=== PATIENT | female | born 1945 | race Two or more races ===

== ENCOUNTER 2023-05-20 18:00 | Inpatient (IN) | payer OTHER ==
[~2023-05-20] VITALS: Ht 165.1 cm; Wt 54.5 kg
[2023-05-20] MEDS ORDERED: SODIUM CHLORIDE 0.9% 1,000 ML IV ONE (18:30)
[2023-05-20] MEDS ORDERED: dilTIAZem 25 MG/5 ML VIAL IV ONE (18:30)
[2023-05-20 18:41] VITALS: PULSE 164; RESP 18; O2SAT 97
[2023-05-20 19:20] LABS: Basophils # (auto) 0.1 10 ^3/uL (0-0.2); Eosinophils # (auto) 0 10 ^3/uL (0-0.8); Lymphocytes # (auto) 0.9 10 ^3/uL (0.4-5.4); Monocytes # (auto) 0.9 10 ^3/uL (0-1.3); Neutrophils # (auto) 10.1 10 ^3/uL (1.6-8.6); White Blood Cell 11.9 10^3/uL (4.4-10.8)
[2023-05-20 19:22] LABS: Basophils % (auto) 0.4 % (0.0-2.0); Hematocrit 39.6 % (36.0-46.0); Hemoglobin 12.5 g/dL (12.2-16.2); Lymphocytes % (auto) 7.3 % (10.0-50.0); Mean Corpuscular Hemoglobin 25.8 pg (28.0-32.0); Mean Corpuscular Hgb Conc. 31.7 g/dL (32.0-36.0); Mean Corpuscular Volume 81.6 fL (80.0-100.0); Monocytes % (auto) 7.4 % (0.0-12.0); Neutrophils % (auto) 84.9 % (37.0-80.0); Red Blood Cells 4.85 10^6/uL (4.0-5.20); Red Cell Distribution Width 19.3 % (11.8-14.3)
[2023-05-20 19:33] VITALS: PULSE 89; RESP 22; O2SAT 95
[2023-05-20 19:38] LABS: INR 1.66 (0.9-1.15); Partial Thromboplastin Time 31.6 SEC (24.5-34.5); Prothrombin Time 16.9 sec (9.3-11.8)
[2023-05-20 19:56] LABS: Albumin 2.6 g/dL (3.4-5.0); Calcium 8.1 mg/dL (8.5-10.1); Potassium 3.5 mmol/L (3.5-5.1)
[2023-05-20 20:07] LABS: BUN/Creatinine Ratio 14.8 (10.0-20.0); Bilirubin, Total 2.3 mg/dL (0.2-1.0); Total Protein 7.1 g/dL (6.4-8.2)
[2023-05-20] MEDS ORDERED: IOHEXOL 350 MG/ML 100ML IJ ONE (21:29)
[2023-05-20] MEDS ORDERED: PIPERACILLIN-TAZOB 3.375GM 100 ML IV ONE (22:30)
[2023-05-20 23:42] LABS: Lactic Acid w/Reflex 8.5 mmol/L (0.4-2.0)
[2023-05-21 00:02] LABS: Urine Bacteria NONE SEEN /hpf (None Seen); Urine Blood 3+ /uL (Negative); Urine Clarity CLOUDY (Clear); Urine Color Orange (Yellow); Urine Mucus FEW (None Seen); Urine Protein, UAD 3+ (Negative); Urine Specific Gravity 1.023 (1.001-1.035); Urine WBC 745 /hpf (0 - 5); Urine WBC Clumps PRESENT /hpf (None Seen)
[2023-05-21] MEDS ORDERED: dilTIAZem 25 MG/5 ML VIAL IV ONE (04:15)
[2023-05-21 04:35] LABS: Albumin 2.7 g/dL (3.4-5.0); Calcium 8.3 mg/dL (8.5-10.1); Potassium 3.6 mmol/L (3.5-5.1)
[2023-05-21 04:53] LABS: BUN/Creatinine Ratio 13.5 (10.0-20.0); Bilirubin, Total 2.9 mg/dL (0.2-1.0); Total Protein 7.4 g/dL (6.4-8.2)
[2023-05-21 07:10] VITALS: PULSE 101; RESP 19; O2SAT 95
[2023-05-21] MEDS ORDERED: AZITHROMYCIN 500MG/ 250ML 250 ML IV ONE (08:15)
[2023-05-21] MEDS ORDERED: SODIUM CHLORIDE 0.9% 1,000 ML IV SCH (09:00)
[2023-05-21] MEDS ORDERED: MORPHINE SULFATE INJ 2 MG/ml SYRG IV PRN (09:00)
[2023-05-21] MEDS ORDERED: NITROGLYCERIN 0.4 MG SL TAB SL PRN (09:00)
[2023-05-21] MEDS ORDERED: ALBUTEROL SULF 2.5 MG/0.5ML(0.5%) NEB SOLN NEB PRN (09:00)
[2023-05-21] MEDS ORDERED: cefTRIAXone 1GM/50ML D5W 50 ML IV ONE (09:00)
[2023-05-21] MEDS ORDERED: ACETAMINOPHEN 325 MG TAB PO PRN (09:00)
[2023-05-21] MEDS ORDERED: METOPROLOL TARTRATE 25 MG TAB PO ONE (09:30)
[2023-05-21] MEDS ORDERED: AZITHROMYCIN 500MG/ 250ML 250 ML IV SCH (10:00)
[2023-05-21] MEDS ORDERED: ENOXAPARIN SOD 40 MG/0.4 ML SYRINGE SC SCH (10:00)
[2023-05-21 11:08] LABS: Lactic Acid w/Reflex 2.2 mmol/L (0.4-2.0)
[2023-05-21] MEDS ORDERED: METOPROLOL TARTRATE 1MG/1ML-5ML VIAL IV PRN (16:00)
[2023-05-21] MEDS ORDERED: PANTOPRAZOLE 40 MG/10 ML VIAL INJ IV ONE (16:00)
[2023-05-21] MEDS ORDERED: SODIUM CHLORIDE 0.9% 1,000 ML IV ONE (16:00)
[2023-05-21] MEDS: SODIUM CHLORIDE 0.9% 1,000 ML IV SCH (16:10)
[2023-05-21 16:11] VITALS: BP 132/70; PULSE 94; RESP 22; TEMP 97.9; O2SAT 100
[2023-05-21] MEDS: CEFEPIME 1GM/ 50ML 50 ML IV SCH (17:31)
[2023-05-21 19:35] VITALS: PULSE 87; RESP 28; O2SAT 99
[2023-05-21] MEDS: LACTULOSE 20Gm/30ML SOLN PO SCH (20:50)
[2023-05-21] MEDS: metroNIDAZOLE 500MG/100ML 100 ML IV SCH ×2 (20:51→21:58)
[2023-05-22] MEDS: SODIUM CHLORIDE 0.9% 1,000 ML IV SCH ×2 (02:52→12:00)
[2023-05-22] MEDS: CEFEPIME 1GM/ 50ML 50 ML IV SCH (04:24)
[2023-05-22 05:00] LABS: Basophils # (auto) 0.1 10 ^3/uL (0-0.2); Basophils % (auto) 1.1 % (0.0-2.0); Eosinophils # (auto) 0 10 ^3/uL (0-0.8); Eosinophils % (auto) 0.3 % (0.0-7.0); Hematocrit 38.6 % (36.0-46.0); Hemoglobin 12.2 g/dL (12.2-16.2); Lymphocytes # (auto) 0.7 10 ^3/uL (0.4-5.4); Mean Corpuscular Hemoglobin 25.7 pg (28.0-32.0); Mean Corpuscular Hgb Conc. 31.6 g/dL (32.0-36.0); Mean Corpuscular Volume 81.2 fL (80.0-100.0); Monocytes # (auto) 0.7 10 ^3/uL (0-1.3); Monocytes % (auto) 5.3 % (0.0-12.0); Neutrophils # (auto) 11.6 10 ^3/uL (1.6-8.6); Neutrophils % (auto) 88.3 % (37.0-80.0); Red Blood Cells 4.75 10^6/uL (4.0-5.20); Red Cell Distribution Width 19.3 % (11.8-14.3); White Blood Cell 13.2 10^3/uL (4.4-10.8)
[2023-05-22 05:23] LABS: Calcium 7.7 mg/dL (8.5-10.1)
[2023-05-22 05:34] LABS: Albumin 2.2 g/dL (3.4-5.0); Bilirubin, Total 1.5 mg/dL (0.2-1.0); Magnesium 1.9 mg/dL (1.6-2.6); Total Protein 6.3 g/dL (6.4-8.2)
[2023-05-22] MEDS: metroNIDAZOLE 500MG/100ML 100 ML IV SCH (05:49)
[2023-05-22 07:10] VITALS: O2SAT 94
[2023-05-22 07:30] VITALS: O2SAT 96
[2023-05-22 08:00] VITALS: TEMP 98
[2023-05-22] MEDS ORDERED: POTASSIUM CHL 20MEQ/100ML 100 ML IV ONE (08:00)
[2023-05-22] MEDS ORDERED: cefTRIAXone 1GM/50ML D5W 50 ML IV SCH (09:00)
[2023-05-22] MEDS ORDERED: ENOXAPARIN SOD 60 MG/0.6 ML SYRINGE SC SCH (10:00)
[2023-05-22] MEDS ORDERED: PANTOPRAZOLE 40 MG/10 ML VIAL INJ IV SCH (10:00)
[2023-05-22] MEDS: LACTULOSE 20Gm/30ML SOLN PO SCH (10:16)
[2023-05-22 10:51] LABS: INR 1.63 (0.9-1.15); Partial Thromboplastin Time 34.5 SEC (24.5-34.5); Prothrombin Time 16.6 sec (9.3-11.8)
[2023-05-22 12:00] VITALS: BP 152/82; PULSE 110; RESP 22; O2SAT 97
[2023-05-23 09:29] LABS: Hepatitis B Surface Antibody Negative (Negative)
[2023-05-23 09:55] LABS: Hepatitis A Total Antibody Positive (Negative)
[2023-05-23 11:39] LABS: Hepatitis A Ab IgM Negative; Hepatitis B Core Total AB Negative (Negative)
[2023-05-23 11:40] LABS: Hepatitis B Core IgM Negative; Hepatitis B Surface Antigen Negative (Negative)
[2023-05-23 11:41] LABS: Hepatitis C Antibody Negative (Negative)
== END 2023-05-22 12:21 | disposition short-term general hospital (02) | DRG 871 ==
LOC: ER 18:00 → EDBD 18:00 → TELE 05-21 08:57
PROVIDERS: ADMIT Nurse Practitioner Family; ATTEND Internal Medicine Geriatric Medicine
DX: A41.9 Sepsis, unspecified organism (principal); J18.9 Pneumonia, unspecified organism; I48.20 Chronic atrial fibrillation, unspecified; N17.9 Acute kidney failure, unspecified; N39.0 Urinary tract infection, site not specified; K80.31 Calculus of bile duct with cholangitis, unspecified, with obstruction; J98.11 Atelectasis; I10 Essential (primary) hypertension; K76.82 Hepatic encephalopathy; R79.89 Other specified abnormal findings of blood chemistry; Z90.49 Acquired absence of other specified parts of digestive tract
CPT/HCPCS: 36415; 71045; 71260; 74177; 74181; 76705; 80053; 80074; 81001; 82140; 83605; 83690; 83735; 83880; 84484; 85025; 85379; 85610; 85730; 86038; 86704; 86706; 86708; 86803; 87040; 87077; 87186; 87340; 93005; 93306; 93970; 96361; 96365; 96366; 97110; 97116; 97163; 97530; 99291; C9113; G0378; J0696; J2543; J3480; J3490

== ENCOUNTER 2024-03-19 12:41 | Inpatient (IN) | payer OTHER ==
[~2024-03-19] VITALS: Ht 162.6 cm; Wt 51.4 kg
[2024-03-19 12:51] VITALS: PULSE 135; RESP 13; O2SAT 97
[2024-03-19 12:59] LABS: Basophils # (auto) 0 10 ^3/uL (0-0.2); Basophils % (auto) 0.5 % (0.0-2.0); Eosinophils # (auto) 0 10 ^3/uL (0-0.8); Eosinophils % (auto) 0.1 % (0.0-7.0); Hematocrit 31.3 % (36.0-46.0); Hemoglobin 10.4 g/dL (12.2-16.2); Lymphocytes % (auto) 11.9 % (10.0-50.0); Mean Corpuscular Hemoglobin 27.9 pg (28.0-32.0); Mean Corpuscular Hgb Conc. 33.1 g/dL (32.0-36.0); Mean Corpuscular Volume 84.2 fL (80.0-100.0); Monocytes # (auto) 0.4 10 ^3/uL (0-1.3); Monocytes % (auto) 4.6 % (0.0-12.0); Neutrophils # (auto) 7.3 10 ^3/uL (1.6-8.6); Neutrophils % (auto) 82.9 % (37.0-80.0); Nucleated Red Blood Cells % 0.1 %; Red Blood Cells 3.72 10^6/uL (4.0-5.20); Red Cell Distribution Width 15.9 % (11.8-14.3); White Blood Cell 8.8 10^3/uL (4.4-10.8)
[2024-03-19 13:15] LABS: INR 1.21 (0.9-1.15); Partial Thromboplastin Time 26.5 SEC (24.5-34.5); Prothrombin Time 12.6 sec (9.3-11.8)
[2024-03-19 13:16] LABS: Alanine Aminotransferase 15 U/L (7-40); Alkaline Phosphatase 76 U/L (46-116); Anion Gap 9 (5-15); Aspartate Aminotransferase 22 U/L (13-40); BUN/Creatinine Ratio 13.8 (10.0-20.0); Blood Urea Nitrogen 18 mg/dL (9-23); Calcium 9.3 mg/dL (8.5-10.1); Carbon Dioxide 22 mmol/L (20-30); Chloride 109 mmol/L (98-107); Glucose 107 mg/dL (74-106); Magnesium 1.5 mg/dL (1.6-2.6); Potassium 3.9 mmol/L (3.5-5.1); Sodium 140 mmol/L (136-145)
[2024-03-19 13:17] LABS: Albumin 3.8 g/dL (3.2-4.8); Bilirubin, Total 0.7 mg/dL (0.2-1.0); Total Protein 6.9 g/dL (5.7-8.2)
[2024-03-19] MEDS: AMIODARONE BOLUS KIT 100 ML IV ONE (13:36)
[2024-03-19] MEDS: AMIODARONE 450mg/250ml AE 250 ML IV SCH (13:45)
[2024-03-19] MEDS ORDERED: DOCUSATE SOD 100 MG CAP PO PRN (18:00)
[2024-03-19] MEDS ORDERED: ONDANSETRON HCL 4 MG/2 ML VIAL IV PRN (18:00)
[2024-03-19] MEDS ORDERED: MORPHINE SULFATE INJ 2 MG/ml SYRG IV PRN (18:00)
[2024-03-19] MEDS ORDERED: NITROGLYCERIN 0.4 MG SL TAB SL PRN (18:00)
[2024-03-19] MEDS ORDERED: PANT40T PO (18:04)
[2024-03-19] MEDS ORDERED: AMIO200T13 PO (18:04)
[2024-03-19] MEDS ORDERED: LISI-275 PO (18:04)
[2024-03-19] MEDS ORDERED: DONE5TAB80 PO (18:04)
[2024-03-19] MEDS ORDERED: TRAZ-227 PO (18:04)
[2024-03-19] MEDS ORDERED: DIGO0.12 PO (18:04)
[2024-03-19] MEDS ORDERED: APIX5TAB PO (18:04)
[2024-03-19] MEDS ORDERED: DULO1CAP4 PO (18:04)
[2024-03-19] MEDS ORDERED: METO-159 PO (18:04)
[2024-03-19] MEDS ORDERED: QUET1TAB11 PO (18:04)
[2024-03-19] MEDS: HYDROcodone-ACET 5/325MG TAB PO PRN (20:34)
[2024-03-19] MEDS: METOPROLOL TARTRATE 50 MG TAB PO SCH (21:41)
[2024-03-19] MEDS: SODIUM CHLOR 0.9% PF (SALINE LOCK) 10ML VIAL/SYR IV SCH (21:41)
[2024-03-19] MEDS: APIXABAN 5 MG TAB PO SCH (21:41)
[2024-03-19] MEDS: traZODone HCL 50 MG TAB PO SCH (21:41)
[2024-03-19 22:29] VITALS: BP 135/69; PULSE 64; PULSE 65; RESP 17; RESP 18; TEMP 97.7; O2SAT 96; O2SAT 98
[2024-03-19 23:20] VITALS: BP 135/69; PULSE 65; RESP 18; TEMP 97.7; O2SAT 98
[2024-03-20] VITALS (7 sets, daily range): BP systolic 98–152; BP diastolic 46–75; PULSE 49–64; RESP 14–18; TEMP 97.3–97.9; O2SAT 98–100
[2024-03-20 07:21] LABS: Basophils # (auto) 0.1 10 ^3/uL (0-0.2); Basophils % (auto) 1.1 % (0.0-2.0); Eosinophils # (auto) 0.1 10 ^3/uL (0-0.8); Eosinophils % (auto) 1.3 % (0.0-7.0); Hematocrit 34.4 % (36.0-46.0); Hemoglobin 11.2 g/dL (12.2-16.2); Lymphocytes # (auto) 3.3 10 ^3/uL (0.4-5.4); Lymphocytes % (auto) 36.6 % (10.0-50.0); Mean Corpuscular Hemoglobin 27.6 pg (28.0-32.0); Mean Corpuscular Hgb Conc. 32.6 g/dL (32.0-36.0); Mean Corpuscular Volume 84.7 fL (80.0-100.0); Monocytes # (auto) 0.9 10 ^3/uL (0-1.3); Monocytes % (auto) 9.7 % (0.0-12.0); Neutrophils # (auto) 4.6 10 ^3/uL (1.6-8.6); Neutrophils % (auto) 51.3 % (37.0-80.0); Red Blood Cells 4.06 10^6/uL (4.0-5.20); Red Cell Distribution Width 16.2 % (11.8-14.3); White Blood Cell 8.9 10^3/uL (4.4-10.8)
[2024-03-20 07:31] LABS: Alanine Aminotransferase 15 U/L (7-40); Albumin 3.5 g/dL (3.2-4.8); Alkaline Phosphatase 71 U/L (46-116); Anion Gap 9 (5-15); Aspartate Aminotransferase 23 U/L (13-40); BUN/Creatinine Ratio 21.9 (10.0-20.0); Calcium 9.2 mg/dL (8.5-10.1); Carbon Dioxide 23 mmol/L (20-30); Chloride 108 mmol/L (98-107); Glucose 89 mg/dL (74-106); Potassium 3.7 mmol/L (3.5-5.1); Sodium 140 mmol/L (136-145)
[2024-03-20 07:32] LABS: Blood Urea Nitrogen 30 mg/dL (9-23)
[2024-03-20 07:33] LABS: Bilirubin, Total 0.3 mg/dL (0.2-1.0); Total Protein 6.4 g/dL (5.7-8.2)
[2024-03-20] MEDS: QUEtiapine FUMARATE 25 MG TAB PO SCH (09:17)
[2024-03-20] MEDS: DIGOXIN 0.125 MG TAB PO SCH (09:19)
[2024-03-20] MEDS: PANTOPRAZOLE 40 MG TAB PO SCH (09:19)
[2024-03-20] MEDS: DULOXETINE HCL 20 MG PO SCH (09:19)
[2024-03-20] MEDS: LISINOPRIL 5 MG TAB PO SCH (09:20)
[2024-03-20] MEDS: DONEPEZIL HYDROCHLORIDE 5 MG TAB PO SCH (10:00)
[2024-03-20 14:51] LABS: Urine Bacteria FEW /hpf (None Seen); Urine Blood Negative /uL (Negative); Urine Clarity Turbid (Clear); Urine Color Light-Orange (Yellow); Urine Protein, UAD 1+ (Negative); Urine Specific Gravity 1.015 (1.001-1.035); Urine Urobilinogen Normal (Negative); Urine WBC 225 /hpf (0 - 5)
[2024-03-20] MEDS: cefTRIAXone 1GM/50ML D5W 50 ML IV ONE (17:08)
[2024-03-20] MEDS: SODIUM CHLORIDE 0.9% 1,000 ML IV SCH (17:08)
[2024-03-20] MEDS: MAGNESIUM SULFATE 1GM/100ML 100 ML IV ONE (17:08)
[2024-03-20] MEDS: ENOXAPARIN SOD 60 MG/0.6 ML SYRINGE SC SCH (21:43)
[2024-03-20] MEDS ORDERED: ENOXAPARIN SOD 100 MG/1 ML SYRINGE SC SCH (22:00)
[2024-03-21] VITALS (7 sets, daily range): BP systolic 135–177; BP diastolic 58–82; PULSE 68–132; RESP 16–18; TEMP 97.8–98.1; O2SAT 97–100
[2024-03-21 06:16] LABS: Chloride 110 mmol/L (98-107); Potassium 3.6 mmol/L (3.5-5.1); Sodium 140 mmol/L (136-145)
[2024-03-21 06:17] LABS: Anion Gap 6 (5-15); Carbon Dioxide 24 mmol/L (20-30)
[2024-03-21 06:18] LABS: Calcium 9.2 mg/dL (8.7-10.4)
[2024-03-21 06:22] LABS: BUN/Creatinine Ratio 27.2 (10.0-20.0); Blood Urea Nitrogen 25 mg/dL (9-23); Glucose 78 mg/dL (74-106)
[2024-03-21] MEDS: cefTRIAXone 1GM/50ML D5W 50 ML IV SCH (09:31)
[2024-03-21] MEDS: hydrALAZINE HCL 20 MG/ML VL IV ONE (11:15)
[2024-03-21] MEDS: hydroCHLOROthiazide 25 MG TAB PO ONE (11:15)
[2024-03-21] MEDS: AMIODARONE BOLUS KIT 100 ML IV ONE (19:22)
[2024-03-21] MEDS: AMIODARONE 450mg/250ml AE 250 ML IV SCH (20:33)
[2024-03-22] VITALS (9 sets, daily range): BP systolic 131–144; BP diastolic 68–90; PULSE 70–109; RESP 16–18; TEMP 97.7–98.3; O2SAT 97–100
[2024-03-22] MEDS: hydroCHLOROthiazide 25 MG TAB PO SCH (10:05)
[2024-03-22] MEDS: LISINOPRIL 20 MG TAB PO SCH (10:05)
[2024-03-23 01:00] VITALS: BP 152/76; PULSE 68; RESP 18; TEMP 98.4; O2SAT 98
[2024-03-23 05:00] VITALS: BP 169/100; PULSE 116; RESP 18; TEMP 98.6; O2SAT 100
[2024-03-23] MEDS: hydrALAZINE HCL 20 MG/ML VL IV PRN (05:17)
[2024-03-23 08:00] VITALS: PULSE 113; PULSE 135; RESP 18; O2SAT 98
[2024-03-23 12:03] VITALS: BP 169/100; PULSE 116; RESP 20; TEMP 98.6; O2SAT 100
[2024-03-23] MEDS: AMIODARONE HCL 200 MG TAB PO ONE (12:25)
[2024-03-23] MEDS: ACETAMINOPHEN 325 MG TAB PO PRN (12:31)
[2024-03-23 13:00] VITALS: BP 122/62; PULSE 106; RESP 17; TEMP 97.3; O2SAT 100
[2024-03-24] MEDS ORDERED: AMIODARONE HCL 200 MG TAB PO SCH (10:00)
== END 2024-03-23 15:45 | disposition home or self-care (01) | DRG 70 ==
LOC: EDBD 12:41 → ER 12:41 → TELE 18:04 → TELE-CENTR 22:25
PROVIDERS: ADMIT Nurse Practitioner Family; ATTEND Internal Medicine Geriatric Medicine
DX: G93.41 Metabolic encephalopathy (principal); I50.23 Acute on chronic systolic (congestive) heart failure; N17.9 Acute kidney failure, unspecified; I48.20 Chronic atrial fibrillation, unspecified; R64 Cachexia; N39.0 Urinary tract infection, site not specified; Z68.1 Body mass index [BMI] 19.9 or less, adult; I42.9 Cardiomyopathy, unspecified; I49.5 Sick sinus syndrome; E86.0 Dehydration; F02.80 Dementia in other diseases classified elsewhere, unspecified severity, without behavioral disturbance, psychotic disturbance, mood disturbance, and anxiety; G30.9 Alzheimer's disease, unspecified; I07.1 Rheumatic tricuspid insufficiency; I11.0 Hypertensive heart disease with heart failure; Z79.01 Long term (current) use of anticoagulants; Z82.49 Family history of ischemic heart disease and other diseases of the circulatory system; Z82.3 Family history of stroke
CPT/HCPCS: 36415; 70450; 71045; 80048; 80053; 80162; 81001; 83735; 83880; 84484; 85025; 85610; 85730; 87086; 93005; 93306; 97110; 97116; 97163; 97530; G0378

== ENCOUNTER 2024-10-03 08:07 | Inpatient (IN) | payer OTHER ==
[~2024-10-03] VITALS: Ht 152.4 cm; Wt 44.4 kg
[~2024-10-03 08:07] MED LIST: AMIO200T13 PO; APIX5TAB PO; DIGO0.12 PO; DONE5TAB80 PO; DULO1CAP4 PO; LISI-275 PO; METO-159 PO; PANT40T PO; QUET1TAB11 PO; TRAZ-227 PO
--- NOTE | 2024-10-03 08:32 | ED.PDOC ---
Altered Mental Status HPI Comments 79 Y F, BIBA with PMHX of dementia, presents to the ED with CC of ALOC. Per EMS, patient's son states that patient has grown progressively altered since 10/01/24. Patient is AXO 0, and is unable to answer questions. Per EMS, patients blood sugar on the glucometer read at 106 and vital signs are stable. Patient de nies tobacco usage, illicit drugs usage, or ETOH consumption. Time Seen by MD: 08:20 Primary Care Provider: UNKNOWN Reviewed Notes: Nurses Notes, Cardiothoracic Surgeon Notes, Medications, Allergies Allergies: Coded Allergies: NO KNOWN ALLERGIES (Unverified , 05/20/23) Home Meds Reported Medications Trazodone Hcl (Trazodone Hcl) 50 Mg Tab, 1 TAB PO 03/19/24 Pantoprazole Sodium Sesquihydr (Pantoprazole Sodium) 40 Mg Tab, 1 TAB PO DAILY 03/19/24 Donepezil Hydrochloride (DONEPEZIL HCL) 5 Mg Tab, 1 TAB PO DAILY 03/19/24 Duloxetine HCl (Duloxetine HCl) 20 Mg Cap, 1 CAP PO DAILY 03/19/24 Lisinopril (Lisinopril) 5 Mg Tab, 1 TAB PO DAILY 03/19/24 Amiodarone HCl (Amiodarone HCl) 200 Mg Tab, 1 TAB PO BID 03/19/24 Metoprolol Tartrate (Metoprolol Tartrate) 100 Mg Tab, 1 TAB PO BID 03/19/24 Digoxin (Digoxin) 125 Mcg Tab, 1 TAB PO DAILY 03/19/24 Quetiapine Fumerate (QUETIAPINE FUMARATE) 25 Mg Tab, TAB PO 03/19/24 Apixaban Base (ELIQUIS) 5 Mg Tab, 1 TAB PO BID 03/19/24 Information Source: Patient, Emergency Med Personnel Mode of Arrival: EMS Severity: Mild Timing: Days Duration: Since onset Prehospital treatment: None Quality: Change in Behavior, Confusion Recent: None History of: Dementia Associated Signs and Symptoms: None Past Medical History PAST MEDICAL HISTORY: AFIB, Dementia, HTN Surgical History: Denies all surgeries CLINICAL EDUCATOR History: Denies all CLINICAL EDUCATOR Hx Family History Family History: Reviewed,noncontributory to illness Social History Smoker: Non-Smoker Alcohol: Denies ETOH Use Drugs: Denies Drug Use Lives In: Home Constitutional: denies: chills, diaphoresis, fatigue, fever, malaise, sweats, weakness, others EENTM: denies: blurred vision, double vision, ear bleeding, ear discharge, ear drainage, ear pain, ear ringing, eye pain, eye redness, hearing loss, mouth pain, mouth swelling, nasal discharge, nose bleeding, nose congestion, nose pain, photophobia, tearing, throat pain, throat swelling, voice changes, others Respiratory: denies: cough, hemoptysis, orthopnea, SOB at rest, shortness of breath, SOB with excertion, stridor, wheezing, others Cardiovascular: denies: chest pain, dizzy spells, diaphoresis, Dyspnea on exertion, edema, irregular heart beat, left arm pain, lightheadedness, palpitations, PND, syncope, others Gastrointestinal: denies: abdomen distended, abdominal pain, blood streaked bowels, constipated, diarrhea, dysphagia, difficulty swallowing, hematemesis, melena, nausea, poor appetite, poor fluid intake, rectal bleeding, rectal pain, vomiting, others Genitourinary: denies: abnormal vagina bleeding, burning, dyspareunia, dysuria, flank pain, frequency, hematuria, incontinence, pain, , vagina discharge, urgency, others Neurological: denies: dizziness, fainting, headache, left sided numbness, left sided weakness, numbness, paresthesia, pre-existing deficit, right sided numbness, right sided weakness, seizure, speech problems, tingling, tremors, weakness, others Musculoskeletal: denies: back pain, gout, joint pain, joint swelling, muscle pain, muscle stiffness, neck pain, others Integumetry: denies: bruises, change in color, change in hair/nails, dryness, laceration, lesions, lumps, rash, wounds, others Allergic/Immunocompromised: denies: Difficulty Healing, Frequent Infections, Hives, Itching, others Hematologic/Lymphatic: denies: anemia, blood clots, easy bleeding, easy bruising, swollen glands, others Endocrine: denies: excessive hunger, excessive sweating, excessive thirst, excessive urination, flushing, intolerance to cold, intolerance to heat, unexplained weight gain, unexplained weight loss, others Psychiatric: denies: anxiety, bipolar disorder, depression, hopeless, panic disorder, schizophrenia, sleepless, suicidal, others Unable to Obtain due to: Altered Mental Status, Dementia All Other Systems: Reviewed and Negative Physical Exam General Appearance: Moderate Distress, Normal HEENT: Normal ENT Inspection, Pharynx Normal, TMs Normal Neck: Full Range of Motion, Non-Tender, Normal, Normal Inspection Respiratory: Chest Non-Tender, Lungs Clear, No Accessory Muscle Use, No Respiratory Distress, Normal Breath Sounds Cardiovascular: Irregular, No Edema, No JVD, No Murmur, No Gallop, Normal Peripheral Pulses Breast Exam: Deferred Gastrointestinal: No Organomegaly, Non Tender, No Pulsatile Mass, Normal Bowel Sounds, Soft Genitalia: Deferred Pelvic: Deferred Rectal: Deferred Extremities: No calf tenderness, Normal capillary refill, Normal inspection, Normal range of motion, Non-tender, No pedal edema Musculoskeletal : Apperance: Normal Neurologic: Alert, cardiothoracic physiotherapist II-XII nml as Tested, Disoriented, No Motor Deficits, Normal Affect, Normal Mood, No Sensory Deficits Cerebellar Function: NOT DONE Reflexes: NOT DONE Skin: Dry, Normal Color, Warm Peripheral Pulses: 3+ Radial (R), 3+ Radial (L) Lymphatic: No Adenopathy Was a procedure done? Was a procedure done?: No Differential Diagnosis (ALOC) Differential Diagnosis: Dehydration, Other (UTI) X-Ray, Labs, Meds, VS Vital Signs Date Time Temp Pulse Resp B/P (MAP) Pulse Ox O2 Delivery O2 Flow Rate FiO2 10/03/24 09:35 63 18 108/47 (67) 91 10/03/24 09:35 63 18 91 Room Air* 0 21 10/03/24 08:42 99.0 96 20 121/58 (79) 95 10/03/24 08:11 76 Lab Test 10/03/24 09:44 Range/Units White Blood Count 19.5 H 4.4-10.8 10^3/uL Red Blood Count 5.07 4.0-5.20 10^6/uL Hemoglobin 14.6 12.2-16.2 g/dL Hematocrit 46.3 H 36.0-46.0 % Mean Corpuscular Volume 91.3 80.0-100.0 fL Mean Corpuscular Hemoglobin 28.7 28.0-32.0 pg Mean Corpuscular Hemoglobin Concent 31.5 L 32.0-36.0 g/dL Red Cell Distribution Width 17.7 H 11.8-14.3 % Platelet Count 323 140-450 10^3/uL Mean Platelet Volume 10.8 6.9-10.8 fL Neutrophils (%) (Auto) 85.4 H 37.0-80.0 % Lymphocytes (%) (Auto) 9.2 L 10.0-50.0 % Monocytes (%) (Auto) 5.2 0.0-12.0 % Eosinophils (%) (Auto) 0.0 0.0-7.0 % Basophils (%) (Auto) 0.2 0.0-2.0 % Neutrophils # (Auto) 16.6 H 1.6-8.6 10 ^3/uL Lymphocytes # (Auto) 1.8 0.4-5.4 10 ^3/uL Monocytes # (Auto) 1.0 0-1.3 10 ^3/uL Eosinophils # (Auto) 0 0-0.8 10 ^3/uL Basophils # (Auto) 0 0-0.2 10 ^3/uL Nucleated Red Blood Cells 0.4 % Sodium Level 147 H 136-145 mmol/L Potassium Level 4.1 3.5-5.1 mmol/L Chloride Level 112 H 98-107 mmol/L Carbon Dioxide Level 13 L 20-31 mmol/L Anion Gap 22 H 5-15 Blood Urea Nitrogen 82 *H 9-23 mg/dL Creatinine 2.41 H 0.550-1.02 mg/dL Glomerular Filtration Rate Calc 20 >90 mL/min BUN/Creatinine Ratio 34.0 H 10.0-20.0 Serum Glucose 175 H 74-106 mg/dL Calcium Level 10.3 8.7-10.4 mg/dL Ammonia 21 11-32 umol/L Plasma/Serum Blood Alcohol < 3.0 <10 mg/dL Current Medications Medications (Trade) Dose Ordered Sig/Paz Route Start Time Stop Time Status Last Admin Sodium Chloride 1,000 ml @ 1,000 mls/hr Q1H ONCE IV 10/03/24 08:45 10/03/24 09:44 DC 10/03/24 10:45 Lorazepam (Ativan Inj) 1 mg ONCE ONCE IV 10/03/24 10:45 10/03/24 10:46 DC 10/03/24 10:45 Flumazenil (Romazicon Injection) 1 mg ONCE ONCE IV 10/03/24 12:45 10/03/24 12:46 DC 12/28/24 12:58 Patient disoriented. Family called because she has been having increased disorientation. Vitals stable. Family states that she has been ambulating. Got most of the history from the paramedics. No leg swelling. She is altered. History of dementia. Reviewed her previous history. Possible urosepsis. Waiting for family. Continue cardiac monitoring. EKG reviewed does show atrial fibrillation. Time of 1ST Reevaluation: 08:50 Reevaluation 1ST: Unchanged Patient Education/Counseling: Treatment Family Education/Counseling: No Family Present Additional Information I REVIEWED THE FOLLOWING NOTES FROM PATIENT'S PAST MEDICAL ENCOUNTERS: 03/19/24 DX: ATRIAL FIBRILLATION WITH RVR THE FOLLOWING TEST WERE ORDERED, AND RESULTS WERE REVIEWED BY ME: ADITIONAL INFORMATION WAS GATHERED FROM INTERVIEWING THE FOLLOWING INDEPENDENT HISTORIANS:EMS I REVIEWED AND AGREED WITH THE FOLLOWING TEST RESULTS READ BY OTHER PROVIDERS: I DISCUSSED TREATMENT AND RESULTS WITH MEDICAL PERSONNEL AND: FAMILY Departure 1 Departure Time of Disposition: 08:42 Impression: Primary Impression: Metabolic encephalopathy Additional Impression: Atrial fibrillation with RVR Disposition: ADMITTED INPATIENT Admit to: Med Surg Condition: Guarded Critical Care Note Critical Care Time?: Yes (45 min-critical care time only) Stability Stability form required: No Heart Score Heart Score: Heart Score Response (Comments) Value History Slightly Suspicious 0 EKG Normal 0 Age >65 2 Risk Factors >3 or Hx ASHD 2 Troponin Normal limit 0 Total 4 I personally scribed for BECKIE AHN MD ([email or web address]) on 10/03/24 at 08:32. Electronically submitted by Kay Iqbal ([email or web address]). I personally scribed for BECKIE AHN MD ([email or web address]) on 10/03/24 at 08:35. Electronically submitted by Kay Iqbal ([email or web address]). I personally scribed for BECKIE AHN MD ([email or web address]) on 10/03/24 at 17:19. Electronically submitted by Kay Iqbal ([email or web address]). BECKIE AHN MD Oct 03, 2024 08:32
[2024-10-03 09:35] VITALS: PULSE 63; RESP 18; O2SAT 91
[2024-10-03 10:09] LABS: Basophils # (auto) 0 10 ^3/uL (0-0.2); Basophils % (auto) 0.2 % (0.0-2.0); Eosinophils # (auto) 0 10 ^3/uL (0-0.8); Hematocrit 46.3 % (36.0-46.0); Hemoglobin 14.6 g/dL (12.2-16.2); Lymphocytes # (auto) 1.8 10 ^3/uL (0.4-5.4); Lymphocytes % (auto) 9.2 % (10.0-50.0); Mean Corpuscular Hemoglobin 28.7 pg (28.0-32.0); Mean Corpuscular Hgb Conc. 31.5 g/dL (32.0-36.0); Mean Corpuscular Volume 91.3 fL (80.0-100.0); Monocytes % (auto) 5.2 % (0.0-12.0); Neutrophils # (auto) 16.6 10 ^3/uL (1.6-8.6); Neutrophils % (auto) 85.4 % (37.0-80.0); Nucleated Red Blood Cells % 0.4 %; Platelet Count (auto) 323 10^3/uL (140-450); Red Blood Cells 5.07 10^6/uL (4.0-5.20); Red Cell Distribution Width 17.7 % (11.8-14.3); White Blood Cell 19.5 10^3/uL (4.4-10.8)
[2024-10-03 10:15] LABS: Anion Gap 22 (5-15); Potassium 4.1 mmol/L (3.5-5.1)
[2024-10-03 10:17] LABS: Calcium 10.3 mg/dL (8.7-10.4)
[2024-10-03 10:20] LABS: Carbon Dioxide 13 mmol/L (20-31); Chloride 112 mmol/L (98-107); Sodium 147 mmol/L (136-145)
[2024-10-03 10:32] LABS: Glucose 175 mg/dL (74-106)
[2024-10-03 10:37] LABS: Blood Urea Nitrogen 82 mg/dL (9-23)
[2024-10-03] MEDS: SODIUM CHLORIDE 0.9% 1,000 ML IV ONE ×3 (10:45→20:45)
[2024-10-03] MEDS: LORazepam 2MG/ML-1ML VIAL IV ONE (10:45)
[2024-10-03] MEDS: FLUMAZENIL 0.1 MG/ML INJ 10ML MDV IV ONE ×2 (12:42→12:58)
[2024-10-03] MEDS ORDERED: MORPHINE SULFATE INJ 2 MG/ml SYRG IV PRN (14:30)
[2024-10-03] MEDS ORDERED: NITROGLYCERIN 0.4 MG SL TAB SL PRN (14:30)
--- NOTE | 2024-10-03 14:41 | DVHHP2 ---
History of Present Illness Reason for Visit: Altered level of consciousness History of Present Illness 79-year-old female with a history of dementia, atrial fibrillation, hypertension, congestive heart failure last ejection fraction is 25% came apparently for confusion and altered level of consciousness per her son. She became progressively altered for the last 2 days Cardiovascular: AFIB, CHF, HTN CRYSTAL GAZER: Dementia Review of Systems Constitutional: No: Fever, Chills, Sweats, Weakness, Malaise, Other Gastrointestinal: No: Nausea, Vomiting, Abdominal Pain, Diarrhea, Constipation, Melena, Hematochezia, Other Neurological: Weakness, Confusion Allergies: Coded Allergies: NO KNOWN ALLERGIES (Unverified , 05/20/23) Medications Current Medications Medications Dose Ordered Sig/Paz Route Start Time Stop Time Status Last Admin Dose Admin Nitroglycerin 0.4 mg Q5MINP PRN SL 10/03/24 14:30 UNV Morphine Sulfate 2 mg Q30M PRN IV 10/03/24 14:30 UNV Exam Vital Signs Vital Signs Date Time Temp Pulse Resp B/P (MAP) Pulse Ox O2 Delivery O2 Flow Rate FiO2 10/03/24 08:42 99.0 96 20 121/58 (79) 95 General Appearance: Alert, Other (Disoriented) Respiratory: Clear to auscultation, Normal air movement Cardiovascular: Other (Irregularly irregular) Abdominal: Normal bowel sounds, Soft, No tenderness Extremities: No edema Labs/Xrays Labs Test 10/03/24 09:44 Range/Units White Blood Count 19.5 H 4.4-10.8 10^3/uL Red Blood Count 5.07 4.0-5.20 10^6/uL Hemoglobin 14.6 12.2-16.2 g/dL Hematocrit 46.3 H 36.0-46.0 % Mean Corpuscular Volume 91.3 80.0-100.0 fL Mean Corpuscular Hemoglobin 28.7 28.0-32.0 pg Mean Corpuscular Hemoglobin Concent 31.5 L 32.0-36.0 g/dL Red Cell Distribution Width 17.7 H 11.8-14.3 % Platelet Count 323 140-450 10^3/uL Mean Platelet Volume 10.8 6.9-10.8 fL Neutrophils (%) (Auto) 85.4 H 37.0-80.0 % Lymphocytes (%) (Auto) 9.2 L 10.0-50.0 % Monocytes (%) (Auto) 5.2 0.0-12.0 % Eosinophils (%) (Auto) 0.0 0.0-7.0 % Basophils (%) (Auto) 0.2 0.0-2.0 % Neutrophils # (Auto) 16.6 H 1.6-8.6 10 ^3/uL Lymphocytes # (Auto) 1.8 0.4-5.4 10 ^3/uL Monocytes # (Auto) 1.0 0-1.3 10 ^3/uL Eosinophils # (Auto) 0 0-0.8 10 ^3/uL Basophils # (Auto) 0 0-0.2 10 ^3/uL Nucleated Red Blood Cells 0.4 % Sodium Level 147 H 136-145 mmol/L Potassium Level 4.1 3.5-5.1 mmol/L Chloride Level 112 H 98-107 mmol/L Carbon Dioxide Level 13 L 20-31 mmol/L Anion Gap 22 H 5-15 Blood Urea Nitrogen 82 *H 9-23 mg/dL Creatinine 2.41 H 0.550-1.02 mg/dL Glomerular Filtration Rate Calc 20 >90 mL/min BUN/Creatinine Ratio 34.0 H 10.0-20.0 Serum Glucose 175 H 74-106 mg/dL Calcium Level 10.3 8.7-10.4 mg/dL Ammonia 21 11-32 umol/L Plasma/Serum Blood Alcohol < 3.0 <10 mg/dL Assessment/Plan Assessment/Plan Acute metabolic encephalopathy Underlying dementia Atrial fibrillation Acute kidney injury hemodynamically mediated most likely due to vasomotor nephropathy Dehydration Leukocytosis Possible sepsis Hypernatremia Hypertension Congestive heart failure last ejection fraction 25% Plan Admit to telemetry Start IV fluids Urinalysis and urine culture Get a chest x-ray Blood cultures Patricia catheter Called the family no answer Code status: Undetermined Plan discussed with: Patient, Other My Orders Orders - MONTSERRAT BRAGA MD Procedure Category Date Status Time Urine Bacterial MAIA 10/03/24 Transmitted Culture 14:18 Admit ADMIT 10/03/24 Transmitted 14:18 Nitroglycerin PHA 10/03/24 Logged Sublingual (Ntrostat 14:30 Morphine Sulfate PHA 10/03/24 Logged Injection 14:30 Stat Ekg For Chest [facility] 10/03/24 In Process Pain 14:18 Notify Of Changes [facility] 10/03/24 In Process From Base 14:18 Patient Service Coordinator For [facility] 10/03/24 In Process 24 Hours 14:18 Emergency Dysrhythmia [facility] 10/03/24 In Process Protocol 14:18 Rhythm Strips Once [facility] 10/03/24 In Process Every Shift 14:18 Oxygen By Nasal RT 10/03/24 Transmitted Cannula 14:18 Sodium Chloride 0.9% PHA 10/03/24 Logged 14:30 Comprehensive LAB 10/04/24 Verified Metabolic Panel 04:00 Complete Blood Count LAB 10/04/24 Verified 04:00 Magnesium LAB 10/04/24 Verified 04:00 Thyroid Stimulating LAB 10/04/24 Verified Hormone 04:00 Sitter At Bedside ORDERS 10/03/24 Verified 14:29 Date of Service: Oct 03, 2024 Billing Provider: MONTSERRAT BRAGA MD Common Visit Codes: NOT BILLABLE MONTSERRAT BRAGA MD Oct 03, 2024 14:41
[2024-10-03] MEDS ORDERED: ONDANSETRON HCL 4 MG/2 ML VIAL IV PRN (14:45)
[2024-10-03] MEDS ORDERED: ACETAMINOPHEN 325 MG TAB PO PRN (14:45)
--- NOTE | 2024-10-03 15:29 | DVH ---
CHEST RADIOGRAPH Indication: sepsis Technique: Single frontal view of the chest was obtained COMPARISON: XY CHEST PORTABLE on DOS: 03/19/24, XY CHEST PORTABLE on DOS: 05/20/23 FINDINGS: Lines and Tubes: None Lungs: Clear Pleura: No effusion. No pneumothorax. Cardiomediastinal contours: Unremarkable Bones: Unremarkable IMPRESSION: No acute disease.
[2024-10-03 15:36] LABS: Urine Bacteria None Seen /hpf (None Seen)
[2024-10-03 15:42] LABS: Urine Blood 2+ /uL (Negative); Urine Clarity Turbid (Clear); Urine Color Yellow (Yellow); Urine Hyaline Cast FEW /lpf (0 - 2); Urine Mucus FEW (None Seen); Urine Protein, UAD 1+ (Negative); Urine Specific Gravity 1.018 (1.001-1.035); Urine Urobilinogen Normal (Negative); Urine WBC 178 /hpf (0 - 5); Urine pH 5.5 (5.0-9.0)
[2024-10-03] MEDS: cefTRIAXone 1GM/50ML D5W 50 ML IV ONE (16:20)
--- NOTE | 2024-10-03 19:13 | ECG ---
[facility] Test Date: 2024-10-03 Test Time: 08:10:39 Pat Name: JHONY SEBASTIAN Department: ED Room: 0292T Gender: F Financial Coordinator: MAURICE : 1945 Requested By: BECKIE AHN Order Number: [id number] Reading MD: Rafat Sexton Measurements Intervals [place] Rate: 98 P: 0 PA: 0 QRS: 87 QRSD: 103 T: -69 QT: 384 QTc: 491 Interpretive Statements Atrial fibrillation Anterior infarct, old Electronically Signed On 10-04-2024 14:13:59 PST by Rafat Sexton Please click the below link to view image of tracing.
[2024-10-03 20:00] VITALS: PULSE 63; RESP 26; O2SAT 100
[2024-10-03 21:39] LABS: Lactic Acid w/Reflex 2.5 mmol/L (0.4-2.0)
[2024-10-03] MEDS ORDERED: VANCOMYCIN PER PHARMACY 0 MG IV SCH (22:00)
[2024-10-03] MEDS: VANCOMYCIN 750MG KIT 100 ML IV ONE (23:00)
[2024-10-04 00:12] VITALS: BP 110/88; PULSE 120; RESP 19; TEMP 97.4; O2SAT 92
[2024-10-04] MEDS: VANCOMYCIN 1GM/250ML KIT 187.5 ML IV ONE (00:40)
[2024-10-04] MEDS: SODIUM CHLORIDE 0.9% 1,000 ML IV ONE (00:59)
[2024-10-04 01:00] VITALS: BP 110/88; PULSE 120; RESP 19; TEMP 97.4; O2SAT 92
[2024-10-04] MEDS: dilTIAZem 25 MG/5 ML VIAL IV ONE (03:44)
[2024-10-04] MEDS: SODIUM BICARB 8.4% 50Meq/50ml SYR Vial IV ONE (04:52)
[2024-10-04 05:00] VITALS: BP 106/86; PULSE 114; RESP 22; O2SAT 95
[2024-10-04] MEDS: cefTRIAXone 1GM/50ML D5W 50 ML IV SCH (08:51)
[2024-10-04] MEDS ORDERED: cefTRIAXone 1GM/50ML D5W 50 ML IV SCH (09:00)
[2024-10-04 09:30] LABS: Base Excess -16.4 mmol/L (-2.0-3.0)
[2024-10-04] MEDS: SODIUM CHLORIDE 0.9% 1,000 ML IV SCH (10:49)
[2024-10-04] MEDS: SODIUM CHLORIDE 0.9% 500 ML IV ONE (10:49)
[2024-10-04] MEDS: PANTOPRAZOLE 40 MG/10 ML VIAL INJ IV SCH (10:59)
[2024-10-04] MEDS: ENOXAPARIN SOD 30 MG/0.3 ML SYRINGE SC SCH (10:59)
--- NOTE | 2024-10-04 12:35 | DVHPN2 ---
Subjective The patient is more confused today She is tachypneic She appears to be septic with a higher lactic acid The labs are not back today yet However the blood gas showed pH 7.3 and pCO2 12 and PO2 of 230 on 60% simple mask I called her son and explained to him the critical condition of his mother, we clarified her code status, he stated that her dementia has been getting worse lately to the point she is staying in bed with a very little oral intake He would like her to be DNR and pursue comfort treatments Changes from previous H/P or p: Changes Gastrointestinal: No Nausea, No Vomiting, No Abdominal Pain, No Diarrhea, No Constipation, No Melena, No Hematochezia, No Other Objective Vitals Vital Signs Date Time Temp Pulse Resp B/P (MAP) Pulse Ox O2 Delivery O2 Flow Rate FiO2 10/04/24 05:00 114 22 106/86 (93) 95 10/04/24 01:00 97.4 97.4 10/04/24 00:12 Simple Mask* 10 99 Intake/Output Intake and Output 10/04/24 07:00 Intake Total 1050 ml Output Total 400 ml Balance 650 ml Intake Oral 50 ml IV Total 1000 ml Output Urine Total 400 ml General Appearance: Alert, Other (Disoriented and confused, moaning) Cardiovascular: Regular rate, Normal S1, Normal S2, Other (Irregular rate and rhythm) Abdomen: Normal bowel sounds, Soft, No tenderness Extremities: No edema Medications Current Medications Medications Dose Ordered Sig/Paz Route Start Time Stop Time Status Last Admin Dose Admin Nitroglycerin 0.4 mg Q5MINP PRN SL 10/03/24 14:30 Morphine Sulfate 2 mg Q30M PRN IV 10/03/24 14:30 Ceftriaxone Sodium 50 ml @ 100 mls/hr DAILY@09 IV 10/04/24 09:00 10/04/24 08:51 100 MLS/HR Acetaminophen 650 mg Q6HP PRN PO 10/03/24 14:45 Ondansetron HCl 4 mg Q4HPRN PRN IV 10/03/24 14:45 Pantoprazole Sodium 40 mg DAILY IV 10/04/24 10:00 10/04/24 10:59 40 MG Enoxaparin Sodium 30 mg DAILY SC 10/04/24 10:00 10/04/24 10:59 30 MG Vancomycin HCl 0 ml @ 0 mls/hr UD IV 10/03/24 22:00 Sodium Chloride 1,000 ml @ 100 mls/hr Q10H IV 10/04/24 09:45 10/04/24 10:49 100 MLS/HR Laboratory Results Laboratory Tests 10/03/24 09:44 Urinalysis Test 10/03/24 15:30 Urine Color Yellow (Yellow) Urine Clarity Turbid (Clear) H Urine pH 5.5 (5.0-9.0) Urine Specific [place] 1.018 (1.001-1.035) Urine Protein 1+ (Negative) H Urine Ketones Negative (Negative) Urine Blood 2+ /uL (Negative) H Urine Nitrite Negative (Negative) Urine Bilirubin Negative (Negative) Urine Urobilinogen Normal mg/dL (Negative) Urine Leukocyte Esterase 3+ /uL (Negative) Urine RBC 23 /hpf (0 - 4) Urine WBC 178 /hpf (0 - 5) Urine Squamous Epithelial Cells Few /hpf (<5) Urine Bacteria None seen /hpf (None Seen) Urine Hyaline Casts Few /lpf (0 - 2) Urine Mucus Few (None Seen) Urine Glucose Normal mg/dL (Normal) Blood Gas Results Test 10/04/24 03:58 10/04/24 08:58 Arterial Blood pH 7.207 (7.350-7.450) 7.332 (7.350-7.450) FiO2 % 55.0 60.0 Microbiology Microbiology Date/Time Source Procedure Growth Status 10/03/24 15:30 Urine - Patricia [place] Urine Culture - Preliminary Resulted Assessment/Plan Assessment/Plan Acute metabolic encephalopathy Underlying dementia Atrial fibrillation Acute kidney injury hemodynamically mediated most likely due to vasomotor nephropathy Dehydration Leukocytosis Possible sepsis Hypernatremia Hypertension Congestive heart failure last ejection fraction 25% Plan Admit to telemetry Start IV fluids Urinalysis and urine culture Get a chest x-ray Blood cultures Patricia catheter Called the family no answer Code status: Undetermined 10/04/2024: Get the labs repeated CBC and chemistries The blood gas showed metabolic acidosis and respiratory alkalosis compensation She is tachypneic I discussed her condition with her son over the phone, DNR Continue IV fluids normal saline Continue IV antibiotics Rocephin and vancomycin for sepsis The blood culture is still pending The urine culture is negative so far For treatments DNR Discussed with the son over the phone Plan discussed with: Son My Orders Orders - MONTSERRAT BRAGA MD Procedure Category Date Status Time Urine Bacterial MAIA 10/03/24 In Process Culture 14:18 Admit ADMIT 10/03/24 Transmitted 14:18 Nitroglycerin PHA 10/03/24 In Process Sublingual (Ntrostat 14:30 Morphine Sulfate PHA 10/03/24 In Process Injection 14:30 Stat Ekg For Chest [facility] 10/03/24 In Process Pain 14:18 Notify Of Changes [facility]ILLIE 10/03/24 In Process From Base 14:18 Rn Ent For LILLIE 10/03/24 In Process 24 Hours 14:18 Emergency Dysrhythmia [facility]ILLIE 10/03/24 In Process Protocol 14:18 Rhythm Strips Once [facility]ILLIE 10/03/24 In Process Every Shift 14:18 Oxygen By Nasal RT 10/03/24 Transmitted Cannula 14:18 Comprehensive LAB 10/04/24 Logged Metabolic Panel 04:00 Complete Blood Count LAB 10/04/24 Logged 04:00 Magnesium LAB 10/04/24 Logged 04:00 Thyroid Stimulating LAB 10/04/24 Logged Hormone 04:00 Sitter At Bedside ORDERS 10/03/24 Transmitted 14:29 Blood Culture MAIA 10/03/24 In Process 14:33 Chest Xray 1 View XY 10/03/24 Resulted 14:33 Ceftriaxone 1gm/50ml PHA 10/04/24 In Process D5w (Rocephin) 09:00 Acetaminophen Tablet PHA 10/03/24 In Process (Tylenol Tablet) 14:45 * Swallow Request ST 10/03/24 Transmitted 14:37 Ondansetron Hcl PHA 10/03/24 In Process (Zofran) 14:45 Pantoprazole PHA 10/04/24 In Process (Protonix) 10:00 Enoxaparin Sodium PHA 10/04/24 In Process (Lovenox) 10:00 Code Status CODE 10/04/24 Transmitted 09:19 * Cardiology Consult CONS 10/04/24 Transmitted 09:34 Sodium Chloride 0.9% PHA 10/04/24 In Process 09:45 Date of Service: Oct 04, 2024 Billing Provider: MONTSERRAT BRAGA MD Common Visit Codes: NOT BILLABLE MONTSERRAT BRAGA MD Oct 04, 2024 12:35
[2024-10-04] MEDS ORDERED: DEXTROSE (50%) 50ML SYRG IV ONE (13:45)
[2024-10-04] MEDS ORDERED: SODIUM CHLORIDE 0.9% 500 ML IV ONE (13:45)
--- NOTE | 2024-10-04 16:04 | DVHDS2 ---
Discharge Summary Date of Admission Oct 03, 2024 at 14:18 Date of Discharge: Oct 04, 2024 Labs/Diagnostic Data: Laboratory Results Test 10/04/24 13:38 10/04/24 08:58 10/04/24 01:42 10/03/24 15:30 POC Glucose < 10 mg/dl (70-106) Blood Gas Specimen Type Arterial Blood Gas Sample Site Left radial Blood Gas Patient Temperature 37.0 Arterial Blood Date Drawn [id number] Arterial Blood pH 7.332 (7.350-7.450) Arterial Blood Partial Pressure CO2 12.9 mmHg (32.0-45.0) Arterial Blood Partial Pressure O2 230.2 mmHg (83.0-108.0) Arterial Blood HCO3 6.7 mmol/L (21.0-28.0) Arterial Blood Oxygen Saturation 99.1 % (94.0-98.0) Arterial Blood Base Excess -16.4 mmol/L (-2.0-3.0) Arterial Blood Oxyhemoglobin 98.4 % (94.0-98.0) Arterial Blood Carboxyhemoglobin 0.3 % (0.5-1.5) Arterial Blood Methemoglobin 0.4 % (0.0-1.5) Manoj Test Yes Blood Gas Total Hemoglobin 12.40 g/dL (12.0-16.0) Blood Gas Liter Flow 10.00 Blood Gas Modality Mask - simple FiO2 % 60.0 Blood Gas Critical Value Read Back Yes Blood Gas Notified Whom jayne Jiang Blood Gas Notified Time [id number] Blood Gas Notified By Inspector Scales deena thomas Lactic Acid Level 4.3 mmol/L (0.4-2.0) Urine Color Yellow (Yellow) Urine Clarity Turbid (Clear) Urine pH 5.5 (5.0-9.0) Urine Specific [place] 1.018 (1.001-1.035) Urine Protein 1+ (Negative) Urine Ketones Negative (Negative) Urine Blood 2+ /uL (Negative) Urine Nitrite Negative (Negative) Urine Bilirubin Negative (Negative) Urine Urobilinogen Normal mg/dL (Negative) Urine Leukocyte Esterase 3+ /uL (Negative) Urine RBC 23 /hpf (0 - 4) Urine WBC 178 /hpf (0 - 5) Urine Squamous Epithelial Cells Few /hpf (<5) Urine Bacteria None seen /hpf (None Seen) Urine Hyaline Casts Few /lpf (0 - 2) Urine Mucus Few (None Seen) Urine Glucose Normal mg/dL (Normal) Test 10/03/24 09:44 White Blood Count 19.5 10^3/uL (4.4-10.8) Red Blood Count 5.07 10^6/uL (4.0-5.20) Hemoglobin 14.6 g/dL (12.2-16.2) Hematocrit 46.3 % (36.0-46.0) Mean Corpuscular Volume 91.3 fL (80.0-100.0) Mean Corpuscular Hemoglobin 28.7 pg (28.0-32.0) Mean Corpuscular Hemoglobin Concent 31.5 g/dL (32.0-36.0) Red Cell Distribution Width 17.7 % (11.8-14.3) Platelet Count 323 10^3/uL (140-450) Mean Platelet Volume 10.8 fL (6.9-10.8) Neutrophils (%) (Auto) 85.4 % (37.0-80.0) Lymphocytes (%) (Auto) 9.2 % (10.0-50.0) Monocytes (%) (Auto) 5.2 % (0.0-12.0) Eosinophils (%) (Auto) 0.0 % (0.0-7.0) Basophils (%) (Auto) 0.2 % (0.0-2.0) Neutrophils # (Auto) 16.6 10 ^3/uL (1.6-8.6) Lymphocytes # (Auto) 1.8 10 ^3/uL (0.4-5.4) Monocytes # (Auto) 1.0 10 ^3/uL (0-1.3) Eosinophils # (Auto) 0 10 ^3/uL (0-0.8) Basophils # (Auto) 0 10 ^3/uL (0-0.2) Nucleated Red Blood Cells 0.4 % Sodium Level 147 mmol/L (136-145) Potassium Level 4.1 mmol/L (3.5-5.1) Chloride Level 112 mmol/L (98-107) Carbon Dioxide Level 13 mmol/L (20-31) Anion Gap 22 (5-15) Blood Urea Nitrogen 82 mg/dL (9-23) Creatinine 2.41 mg/dL (0.550-1.02) Glomerular Filtration Rate Calc 20 mL/min (>90) BUN/Creatinine Ratio 34.0 (10.0-20.0) Serum Glucose 175 mg/dL (74-106) Calcium Level 10.3 mg/dL (8.7-10.4) Ammonia 21 umol/L (11-32) Plasma/Serum Blood Alcohol < 3.0 mg/dL (<10) Other Laboratory Tests 10/03/24 09:44 Brief Hx & Hospital Course: Final diagnoses: Acute metabolic encephalopathy due to sepsis UTI Severe sepsis with septic shock due to UTI Underlying dementia Atrial fibrillation Acute kidney injury hemodynamically mediated most likely due to vasomotor nephropathy Dehydration Leukocytosis Hypernatremia Hypertension Congestive heart failure last ejection fraction 25% The patient was a 79-year-old female with a history of dementia, hypertension, heart failure, atrial fibrillation came with the increased confusion and was found to have sepsis and leukocytosis and dehydration with acute kidney injury and therefore she was admitted and given IV fluids and IV antibiotics Overnight she did not improve and this morning she became more septic with a elevated lactic acid and hypotensive and therefore we contacted the family, her son Kris over the phone indicated that she has not been doing well lately with a decreased mental status and decreased functional capacity and decreased oral intake and he wanted her DNR. The patient later in the afternoon she became more hypotensive, she became hypoglycemic, we will give IV fluids and D50 however the patient did not respond and she became more altered and comatose eventually and she at 1:52 p.m. today. Condition at Discharge: Poor Final Diagnosis/Problems List Acute metabolic encephalopathy Underlying dementia Atrial fibrillation Acute kidney injury hemodynamically mediated most likely due to vasomotor nephropathy Dehydration Leukocytosis Possible sepsis Hypernatremia Hypertension Congestive heart failure last ejection fraction 25% Discharge Disposition: at Hospital SNF Discharge Will this Physician continue t: No Discharge Statement: "Patient was advised to return to the ER or call 911 if any headaches, dizziness, shortness of breath, chest pain, abdominal pain, bleeding, fevers, or worsening of medical condition. Patient was counseled about treatment plan, medications, possible side effects, patientverbalized understanding. All questions were answered to the best of my ability. This discharge took greater then 30 minutes in planning, reviewing documentation, counseling the patient, and discussing with other team members." ASSESSMENT ASSESSMENT Assessment Date of Service: Oct 04, 2024 Billing Provider: MONTSERRAT BRAGA MD Common Visit Codes: NOT BILLABLE MONTSERRAT BRAGA MD Oct 04, 2024 16:04
== END 2024-10-04 16:00 | DRG 871 ==
LOC: EDBD 08:07 → EDUNIT# 08:07 → ER 08:07 → TELE 14:18 → TELE-WESTW 23:54
PROVIDERS: ADMIT Internal Medicine Geriatric Medicine; ATTEND Internal Medicine Geriatric Medicine
DX: A41.9 Sepsis, unspecified organism (principal); G93.41 Metabolic encephalopathy; N17.0 Acute kidney failure with tubular necrosis; R65.21 Severe sepsis with septic shock; E87.0 Hyperosmolality and hypernatremia; E87.4 Mixed disorder of acid-base balance; N39.0 Urinary tract infection, site not specified; Z66 Do not resuscitate; F03.90 Unspecified dementia, unspecified severity, without behavioral disturbance, psychotic disturbance, mood disturbance, and anxiety; I48.91 Unspecified atrial fibrillation; I11.0 Hypertensive heart disease with heart failure; I50.9 Heart failure, unspecified; E86.0 Dehydration
CPT/HCPCS: 36415; 36600; 71045; 80048; 80320; 81001; 82140; 82805; 82962; 83605; 85025; 87040; 87086; 93005; 96365; G0378; J2470